=== PATIENT | male | born 1970 | race Two or more races ===

== ENCOUNTER 2017-03-19 23:28 | Inpatient (IN) | payer MEDICAID ==
[~2017-03-19] VITALS: Ht 172.7 cm; Wt 66.9 kg
[2017-03-20 03:59] LABS: Basophils # (auto) 0.1 uL; Basophils % (auto) 0.6 % (0.0-2.0); Eosinophils # (auto) 0.1 uL; Eosinophils % (auto) 0.9 % (0.0-7.0); Hematocrit 41.7 % (41.0-53.0); Hemoglobin 13.1 g/dL (13.5-17.5); Lymphocytes # (auto) 2.2 uL; Mean Corpuscular Hgb Conc. 31.5 g/dL (32.0-36.0); Mean Platelet Volume 7.6 fL (7.4-10.4); Monocytes # (auto) 0.7 uL; Monocytes % (auto) 8.1 % (0.0-12.0); Neutrophils # (auto) 5.9 uL; Neutrophils % (auto) 65.4 % (37.0-80.0); Platelet Count (auto) 401 10^3/uL (140-450); White Blood Cell 8.9 10^3/uL (4.4-10.8)
[2017-03-20 04:15] LABS: Albumin 2.6 g/dL (3.4-5.0); BUN/Creatinine Ratio 19.7; Calcium 7.9 mg/dL (8.5-10.1); Potassium 4.5 mmol/L (3.5-5.1)
[2017-03-20] MEDS ORDERED: SODIUM CHLORIDE 0.9% 3,000 ML IV ONE (04:15)
[2017-03-20 04:19] LABS: Bilirubin, Total 0.9 mg/dL (0.2-1.0); Total Protein 5.9 g/dL (6.4-8.2)
[2017-03-20 04:27] LABS: Partial Thromboplastin Time 24.5 sec (22.64-33.71)
[2017-03-20 04:28] LABS: INR 1.18 (0.9-1.15); Prothrombin Time 12.7 sec (9.37-12.3)
[2017-03-20] MEDS ORDERED: LORazepam 2MG/ML-1ML VIAL IV ONE (04:30)
[2017-03-20 04:32] LABS: B-Type Natriuretic Peptide 1181.63 pg/mL (0-100)
[2017-03-20] MEDS ORDERED: FUROSEMIDE 40 MG/4 ML VIAL IV ONE ×3 (05:45→14:00)
[2017-03-20] MEDS ORDERED: ALBUTEROL SULF 2.5 MG/0.5ML(0.5%) NEB SOLN NEB ONE (07:15)
[2017-03-20] MEDS ORDERED: FUROSEMIDE 40 MG/4 ML VIAL ONE (07:54)
[2017-03-20] MEDS: POTASSIUM CHL 10 Meq TABLET PO SCH (10:00)
[2017-03-20] MEDS ORDERED: ALUM & MAG HYDROX-SIMETH LIQ(MAALOX) 30 ML PO PRN (10:15)
[2017-03-20] MEDS ORDERED: ONDANSETRON HCL 4 MG/2 ML VIAL IV PRN (10:15)
[2017-03-20] MEDS ORDERED: ZOLPIDEM TARTRATE 5 MG TAB PO PRN (10:15)
[2017-03-20] MEDS ORDERED: LORazepam 0.5 MG TAB PO PRN (10:15)
[2017-03-20] MEDS ORDERED: NITROGLYCERIN 0.4 MG SL TAB SL PRN ×2 (10:15)
[2017-03-20] MEDS ORDERED: ACETAMINOPHEN 325 MG TAB PO PRN (10:15)
[2017-03-20] MEDS ORDERED: MORPHINE SULF INJ 2 MG/ML SYRINGE 1ML IV PRN ×2 (10:15)
[2017-03-20] MEDS: ASPirin 81 mg TAB PO SCH (10:31)
[2017-03-20] MEDS: CLOPIDOGREL BISULFATE 75 MG TAB PO SCH (10:31)
[2017-03-20] MEDS: ENALAPRIL MALEATE 2.5 MG TAB PO SCH ×2 (10:31→21:41)
[2017-03-20] MEDS: DOCUSATE SOD 100 MG CAP PO SCH (10:31)
[2017-03-20] MEDS: CARVEDILOL 3.125 MG TAB PO SCH ×2 (10:31→21:40)
[2017-03-20] MEDS: BOOST PLUS 8 ounce PO SCH ×3 (12:00→21:42)
[2017-03-20] MEDS: SODIUM CHLOR 0.9% PF (SALINE LOCK) 10ML VIAL IV SCH ×2 (14:00→21:41)
[2017-03-20] MEDS: PROMETHAZINE W/CODEINE 5 ML ORAL SYRUP PO PRN ×2 (14:30→23:25)
[2017-03-20] MEDS: ALBUTEROL SULF 2.5 MG/0.5ML(0.5%) NEB SOLN NEB SCH (19:39)
[2017-03-20 20:38] VITALS: BP 124/87
[2017-03-20] MEDS: ATORVASTATIN 20 MG TAB PO SCH (21:41)
[2017-03-20 22:00] VITALS: BP 118/78
[2017-03-21 05:00] VITALS: BP 97/70
[2017-03-21] MEDS: BOOST PLUS 8 ounce PO SCH ×3 (05:14→21:41)
[2017-03-21] MEDS: SODIUM CHLOR 0.9% PF (SALINE LOCK) 10ML VIAL IV SCH ×3 (05:14→21:40)
[2017-03-21 06:07] LABS: Basophils # (auto) 0 uL; Basophils % (auto) 0.6 % (0.0-2.0); Eosinophils # (auto) 0.2 uL; Eosinophils % (auto) 3.2 % (0.0-7.0); Hematocrit 39.3 % (41.0-53.0); Hemoglobin 12.5 g/dL (13.5-17.5); Lymphocytes % (auto) 30.3 % (10.0-50.0); Mean Corpuscular Hemoglobin 30.3 pg (28.0-32.0); Mean Corpuscular Hgb Conc. 31.9 g/dL (32.0-36.0); Mean Platelet Volume 7.9 fL (7.4-10.4); Monocytes # (auto) 0.5 uL; Monocytes % (auto) 7.9 % (0.0-12.0); Neutrophils # (auto) 3.9 uL; Platelet Count (auto) 359 10^3/uL (140-450); Red Cell Distribution Width 15.6 % (11.6-16.0); White Blood Cell 6.7 10^3/uL (4.4-10.8)
[2017-03-21 06:27] LABS: Albumin 2.2 g/dL (3.4-5.0); BUN/Creatinine Ratio 16.7; Bilirubin, Total 0.5 mg/dL (0.2-1.0); Calcium 8.5 mg/dL (8.5-10.1); Total Protein 5.3 g/dL (6.4-8.2)
[2017-03-21] MEDS: ALBUTEROL SULF 2.5 MG/0.5ML(0.5%) NEB SOLN NEB SCH ×4 (07:23→18:32)
[2017-03-21 08:00] VITALS: BP 102/68
[2017-03-21 08:51] VITALS: BP 102/68
[2017-03-21] MEDS: ASPirin 81 mg TAB PO SCH (10:49)
[2017-03-21] MEDS: DOCUSATE SOD 100 MG CAP PO SCH (10:49)
[2017-03-21] MEDS: CLOPIDOGREL BISULFATE 75 MG TAB PO SCH (10:49)
[2017-03-21] MEDS: POTASSIUM CHL 10 Meq TABLET PO SCH (10:49)
[2017-03-21] MEDS: ENALAPRIL MALEATE 2.5 MG TAB PO SCH ×2 (10:50→21:40)
[2017-03-21] MEDS: CARVEDILOL 3.125 MG TAB PO SCH ×2 (10:50→21:41)
[2017-03-21] MEDS: FUROSEMIDE 40 MG/4 ML VIAL IV SCH (10:51)
[2017-03-21 12:30] VITALS: BP 99/74
[2017-03-21 17:00] VITALS: BP 97/59
[2017-03-21] MEDS: ATORVASTATIN 20 MG TAB PO SCH (21:40)
[2017-03-21 21:52] VITALS: BP 99/65
[2017-03-22 05:00] VITALS: BP 105/74
[2017-03-22] MEDS ORDERED: SODIUM CHLORIDE 0.9 % NEB SOLN 3ML NEB ONE (05:50)
[2017-03-22] MEDS: BOOST PLUS 8 ounce PO SCH ×4 (06:00→21:34)
[2017-03-22] MEDS: SODIUM CHLOR 0.9% PF (SALINE LOCK) 10ML VIAL IV SCH ×3 (06:01→21:34)
[2017-03-22 06:34] LABS: Albumin 2.2 g/dL (3.4-5.0); Bilirubin, Total 0.7 mg/dL (0.2-1.0); Calcium 8.3 mg/dL (8.5-10.1); Potassium 4.6 mmol/L (3.5-5.1); Total Protein 5.5 g/dL (6.4-8.2)
[2017-03-22] MEDS: ALBUTEROL SULF 2.5 MG/0.5ML(0.5%) NEB SOLN NEB SCH ×3 (07:10→20:09)
[2017-03-22 08:00] VITALS: BP 94/65
[2017-03-22 10:01] VITALS: BP 94/65
[2017-03-22] MEDS: ASPirin 81 mg TAB PO SCH (11:59)
[2017-03-22] MEDS: POTASSIUM CHL 10 Meq TABLET PO SCH (11:59)
[2017-03-22] MEDS: CLOPIDOGREL BISULFATE 75 MG TAB PO SCH (11:59)
[2017-03-22] MEDS: DOCUSATE SOD 100 MG CAP PO SCH (11:59)
[2017-03-22 13:00] VITALS: BP 100/78
[2017-03-22] MEDS: ENALAPRIL MALEATE 2.5 MG TAB PO SCH ×2 (16:12→21:35)
[2017-03-22] MEDS: FUROSEMIDE 40 MG/4 ML VIAL IV SCH (16:13)
[2017-03-22] MEDS: CARVEDILOL 3.125 MG TAB PO SCH ×2 (16:13→21:35)
[2017-03-22 16:31] VITALS: BP 108/70
[2017-03-22] MEDS: ATORVASTATIN 20 MG TAB PO SCH (21:35)
[2017-03-22 22:00] VITALS: BP 94/64
[2017-03-23 05:00] VITALS: BP 94/69
[2017-03-23] MEDS: BOOST PLUS 8 ounce PO SCH ×2 (06:00→12:21)
[2017-03-23] MEDS: SODIUM CHLOR 0.9% PF (SALINE LOCK) 10ML VIAL IV SCH (06:05)
[2017-03-23 06:11] LABS: BUN/Creatinine Ratio 21.3; Calcium 8.5 mg/dL (8.5-10.1); Potassium 4.6 mmol/L (3.5-5.1)
[2017-03-23 06:35] LABS: B-Type Natriuretic Peptide 385.48 pg/mL (0-100)
[2017-03-23] MEDS: ALBUTEROL SULF 2.5 MG/0.5ML(0.5%) NEB SOLN NEB SCH ×2 (07:55→11:40)
[2017-03-23 08:15] VITALS: BP 94/64
[2017-03-23 09:00] VITALS: BP 96/58
[2017-03-23] MEDS: POTASSIUM CHL 10 Meq TABLET PO SCH (09:42)
[2017-03-23] MEDS: ASPirin 81 mg TAB PO SCH (09:42)
[2017-03-23] MEDS: DOCUSATE SOD 100 MG CAP PO SCH (09:43)
[2017-03-23] MEDS: CARVEDILOL 3.125 MG TAB PO SCH (09:44)
[2017-03-23] MEDS: CLOPIDOGREL BISULFATE 75 MG TAB PO SCH (09:44)
[2017-03-23] MEDS: FUROSEMIDE 40 MG/4 ML VIAL IV SCH (09:45)
[2017-03-23] MEDS: ENALAPRIL MALEATE 2.5 MG TAB PO SCH (09:45)
== END 2017-03-23 13:15 | disposition left against medical advice (07) | DRG 194 ==
LOC: EDBD 23:28 → ER 23:36 → TELE-E-ADS 23:37 → WEST WING 03-20 11:57 → TELE-WESTW 03-20 21:08
PROVIDERS: ADMIT Internal Medicine; ATTEND Internal Medicine
DX: I50.43 Acute on chronic combined systolic (congestive) and diastolic (congestive) heart failure (principal); E43 Unspecified severe protein-calorie malnutrition; D68.9 Coagulation defect, unspecified; E83.51 Hypocalcemia; F12.90 Cannabis use, unspecified, uncomplicated; F15.10 Other stimulant abuse, uncomplicated; J98.11 Atelectasis; K76.89 Other specified diseases of liver; F17.210 Nicotine dependence, cigarettes, uncomplicated; D63.8 Anemia in other chronic diseases classified elsewhere; Z83.79 Family history of other diseases of the digestive system; Z82.49 Family history of ischemic heart disease and other diseases of the circulatory system; Z87.898 Personal history of other specified conditions; Z91.19 Patient's noncompliance with other medical treatment and regimen; Z68.22 Body mass index [BMI] 22.0-22.9, adult
CPT/HCPCS: 36415; 71010; 74176; 80048; 80053; 80061; 80074; 80307; 83735; 83880; 84484; 85025; 85610; 85730; 87045; 87081; 87493; 87899; 93005; 93306; 94640; 96361; 96374; 96375